=== PATIENT | female | born 1990 | race American Indian/Alaskan Native ===

== ENCOUNTER 2018-06-08 16:05 | Emergency (ER) | payer OTHER ==
[2018-06-08 16:31] VITALS: BP 145/85
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
== END 2018-06-08 18:42 | disposition home or self-care (01) ==
LOC: ED 16:05
DX: Z04.1 Encounter for examination and observation following transport accident (principal); Z91.018 Allergy to other foods
CPT/HCPCS: 99282

== ENCOUNTER 2020-10-12 10:53 | Emergency (ER) | payer SELFPAY | END 2020-10-12 14:16 | disposition left against medical advice (07) | LOC: ED 10:53 | DX: M25.531 Pain in right wrist (principal); Z53.21 Procedure and treatment not carried out due to patient leaving prior to being seen by health care provider ==